=== PATIENT | male | born 1980 | race Caucasian/White ===

== ENCOUNTER 2018-04-25 11:48 | Emergency (ER) | payer OTHER ==
[~2018-04-25] VITALS: Ht 172.7 cm; Wt 81.7 kg
[2018-04-25 12:47] LABS: HEMATOCRIT 43.5 % (42.0-52.0); MCH 34.5 pg (26.0-34.0); MCHC 34.5 g/dL (28.0-37.0); MCV 100.1 fL (80.0-100.0); RBC 4.35 mil/uL (4.50-6.00); RDW 13.5 % (10.5-14.5); WBC 9.2 thou/uL (4.0-11.0)
[2018-04-25 12:54] LABS: CALCIUM 9.6 mg/dL (8.5-10.1); CREATININE 1.2 mg/dL (0.7-1.3); POTASSIUM 4.3 mmol/L (3.5-5.1)
[2018-04-25 13:06] VITALS: BP 146/98
[2018-04-25] MEDS ORDERED: CYMBALTA30 MG PO (13:07)
[2018-04-25] MEDS ORDERED: TOPROL XL25 MG PO (13:07)
[2018-04-25] MEDS ORDERED: PROTONIX 20 MG20 M1 PO (13:08)
[2018-04-25] MEDS ORDERED: CLONAZEPAM 1 MG1 M1 PO (13:08)
[2018-04-25] MEDS ORDERED: KEFLEX500 M1 PO (13:10)
[2018-04-25] MEDS ORDERED: HYDROCODONE-AP1 EAC6 PO (13:10)
== END 2018-04-25 13:59 | disposition home or self-care (01) ==
LOC: ER 11:48
PROVIDERS: Physician Assistant
DX: S50.812D Abrasion of left forearm, subsequent encounter (principal); S90.812D Abrasion, left foot, subsequent encounter; L03.90 Cellulitis, unspecified; I10 Essential (primary) hypertension; X58.XXXD Exposure to other specified factors, subsequent encounter